=== PATIENT | male | born 1960 | race Caucasian/White ===

== ENCOUNTER 2016-11-03 16:37 | Emergency (ER) | payer OTHER, MEDICAID, MEDICARE ==
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
[2016-11-03 18:13] VITALS: BP 116/68; PULSE 72; RESP 18; TEMP 99.1; O2SAT 96
== END 2016-11-03 18:13 | disposition home or self-care (01) ==
DX: S16.1XXA Strain of muscle, fascia and tendon at neck level, initial encounter (principal); I10 Essential (primary) hypertension; J45.909 Unspecified asthma, uncomplicated; V49.49XA Driver injured in collision with other motor vehicles in traffic accident, initial encounter; Y92.410 Unspecified street and highway as the place of occurrence of the external cause; Y93.89 Activity, other specified

== ENCOUNTER → 2017-03-09 | Outpatient (CLI) | payer OTHER, MEDICAID | LOC: FIMAGING 12:17 | PROVIDERS: ATTEND Family Medicine | DX: R31.0 Gross hematuria (principal); K59.00 Constipation, unspecified ==